=== PATIENT | female | born 1930 | race Caucasian/White ===

== ENCOUNTER 2017-01-26 15:40 | Emergency (ER) | payer MEDICARE, OTHER ==
[~2017-01-26] VITALS: Ht 162.6 cm; Wt 65.8 kg
[2017-01-26] MEDS ORDERED: MELO15TA39 PO (15:57)
[2017-01-26] MEDS ORDERED: METF500T4 PO (15:57)
[2017-01-26] MEDS ORDERED: MONT10TA21 PO (15:57)
[2017-01-26] MEDS ORDERED: SIMV20TA PO (15:57)
[2017-01-26] MEDS ORDERED: FEXO1TAB40 PO (15:57)
--- NOTE | 2017-01-26 16:00 | ED Head Injury ---
General Chief Complaint: Laceration Stated Complaint: HEAD LACERATION Nursing Triage Note: TRIPPED AND FELL IN PARKING LOT HITTING TOP OF FOREHEAD ON GRAVEL. Source: patient, spouse Exam Limitations: no limitations History of Present Illness Time seen by provider: 16:00 Initial Comments 86-year-old female patient presents to the emergency Department with reports of tripping in the parking lot at [facility] and falling on her face/forehead. Denies LOC, SARGENT, or confusion. Does c/o laceration of the forehead and skin tear on the left hand. Occurred: just prior to arrival Location: frontal Method of Injury: fell Loss of Consciousness: no loss of consciousness Allergies and Home Medications Allergies Coded Allergies: Penicillins (Verified Allergy, Unknown, 01/26/17) codeine (Verified Allergy, Unknown, 01/26/17) Home Medications Fexofenadine/Pseudoephedrine 1 Each Tab.er.12h, 1 EACH PO, (Reported) Meloxicam 15 Mg Tablet, 15 MG PO DAILY, (Reported) Metformin HCl 500 Mg Tablet, 500 MG PO, (Reported) Montelukast Sodium 10 Mg Tablet, 10 MG PO DAILY, (Reported) Simvastatin 20 Mg Tablet, 20 MG PO DAILY, (Reported) Constitutional: no symptoms reported Eyes: Denies Blurred Vision, Denies Drainage, Denies Decreased Acuity, Denies Pain, Denies Photophobia, Denies Vision Changes Ears, Nose, Mouth, Throat: denies ear pain, denies ear discharge, denies nose pain, denies nose discharge, denies epistaxis, denies mouth pain, denies throat pain Respiratory: no symptoms reported Cardiovascular: no symptoms reported Gastrointestinal: no symptoms reported Musculoskeletal: No back pain, No joint pain, No neck pain Skin: see HPI Psychiatric/Neurological: Denies Cognitive Dysfunction, Denies Headache, Denies Numbness, Denies Petit Mal Seizures, Denies Tingling, Denies Tonic Clonic Seizures, Denies Unable to Move Lower Ext, Denies Unable to Move Upper Ext, Denies Weakness All Other Systems Reviewed Negative Unless Noted: Yes (Negative excepted noted.) Past Umtbyxy-Pcuwad-Czjrzz Hx Patient Social History Alcohol Use: Denies Use Recreational Drug Use: No Smoking Status: Never a Smoker Recent Foreign Travel: No Contact w/Someone Who Travel: No Recent Infectious Disease Expo: No Recent Hopitalizations: No Immunizations Up To Date Tetanus Booster (TDap): More than 5yrs Surgeries HX Surgeries: Yes Surgeries: Appendectomy, Gallbladder, Hysterectomy, Orthopedic, Tonsillectomy Respiratory Hx Respiratory Disorders: Yes (BRONCHIECTOSIS) Cardiovascular Hx Cardiac Disorders: No Neurological Hx Neurological Disorders: No Genitourinary Hx Genitourinary Disorders: No Gastrointestinal Hx Gastrointestinal Disorders: No Musculoskeletal Hx Musculoskeletal Disorders: Yes Musculoskeletal Disorders: Chronic Back Pain Endocrine Hx Endocrine Disorders: No Cancer Hx Cancer: No Reviewed Nursing Assessment Reviewed/Agree w Nursing PMH: Yes Family Medical History Significant Family History: No Pertinent Family Hx Physical Exam Vital Signs Vital Sign - Last 12Hours 01/26/17 01/26/17 15:47 16:55 Temp 96.2 Pulse 100 Resp 19 B/P (MAP) 166/90 Pulse Ox 96 Capillary Refill : Less Than 3 Seconds General Appearance: WD/WN, no apparent distress HEENT: PERRL/EOMI, normal ENT inspection, TMs normal, pharynx normal, other (4 cm L-shaped superficial laceration with surrounding abrasions. ) Neck: non-tender, full range of motion, supple, normal inspection Cardiovascular: normal peripheral pulses, regular rate, rhythm, no edema, no murmur Respiratory: lungs clear, normal breath sounds, no respiratory distress Gastrointestinal: non tender, soft, No distended Back: normal inspection, no vertebral tenderness Extremities: normal range of motion, non-tender, no pedal edema, normal capillary refill, pelvis stable Psychiatric: alert, oriented x 3 Crainal Nerves: normal hearing, normal speech, PERRL Coordination/Gait: normal finger to nose, normal gait, negative Romberg's sign Motor/Sensory: no motor deficit, no sensory deficit, no pronator drift Skin: normal color, warm/dry, other (4 cm L-shaped superficial laceration with surrounding abrasions. 2 cm skin tear left posterior hand. ) Alvin Coma Score Best Eye Response: (4) Open Spontaneously Best Verbal Response: (5) Oriented Best Motor Response: (6) Obeys Commands Leota Total: 15 Laceration Repair : Wound Location: Scalp (and forehead) Wound Length (cm): 4 Wound Explored: contaminated Betadine Prep?: No (scrubbed with chorhexadine and sterile saline.) Other Closure Supply: Wound Adhesive Sterile Dressing Applied?: No Progress/Results/Core Measures Results/Orders My Orders Orders - SAEID BILLINGS Ct Head Wo (01/26/17 16:06) Dipht,Pertuss(Acell),Tet Adult (Boostrix (01/26/17 16:06) Lidocaine/Epi 1% 1:100,000 (Xylocaine /E (01/26/17 16:06) Vital Signs/I&O Vital Sign - Last 12Hours 01/26/17 01/26/17 15:47 16:55 Temp 96.2 96.2 Pulse 100 100 Resp B/P (MAP) 166/90 Pulse Ox 96 Blood Pressure Mean: 115 Diagnostic Imaging Diagonstic Imaging: CT Plain Films/CT/US/NM/MRI: head Comments FINDINGS: There are mild diffuse atrophic changes. There are no extra-axial fluid collections. No intracranial hemorrhage. There are mild low-density changes in the deep white matter, compatible with chronic ischemic change. There is no acute appearing intracranial abnormality. The calvarial windows show no fracture. IMPRESSION: Mild atrophic changes and chronic changes in the deep white matter. No acute hemorrhage, mass effect, or acute appearing intracranial finding. Dictated on workstation # [id number] Reviewed: Reviewed by Me (radiology report reviewed by me) Departure Communication Progress Notes diagnostic findings discussed with the patient. plan for dsch to home. Impression Impression: Primary Impression: Minor head injury Qualified Codes: S00.90XA - Unspecified superficial injury of unspecified part of head, initial encounter Additional Impressions: Laceration of scalp without complication Qualified Codes: S01.01XA - Laceration without foreign body of scalp, initial encounter Skin tear of left hand without complication Qualified Codes: S61.412A - Laceration without foreign body of left hand, initial encounter Disposition: 01 HOME, SELF-CARE Condition: Improved Departure-Patient Inst. Decision time for Depature: 16:29 Referrals: NO,LOCAL PHYSICIAN (PCP) Primary Care Physician Patient Instructions: Laceration Repair With Glue (DC), Minor Head Injury (DC) Add. Discharge Instructions: All discharge instructions reviewed with patient and/or family. Voiced understanding. Medications as directed. Continue usual medications. Ice pack for 20 minute intervals as needed for pain. Shower with antibacterial soap. Follow-up with your family practitioner for recheck. Call for appointment time. Return to the emergency department for worsened pain, dizziness, changes in vision, changes in behavior, shortness of air, seizure, chest pain, vomiting , numbness, weakness, redness, drainage, fever, or any other concerns. Work/School Note: Local Medical Staff Listing SAEID BILLINGS Jan 26, 2017 16:00
[2017-01-26] MEDS ORDERED: LIDOCAINE/EPI 1%-1:100,000 (XYLOCAINE) 20ML INJ STA (16:06)
[2017-01-26] MEDS ORDERED: TETANUS,DIPTH,PERTUSS P/F (BOOSTRIX) 0.5 ML VIAL IM STA (16:06)
--- NOTE | 2017-01-26 16:25 | Diagnostic Imaging Report ---
INDICATION: Status post fall with injury to head. TECHNIQUE: A noncontrast brain CT was performed. FINDINGS: There are mild diffuse atrophic changes. There are no extra-axial fluid collections. No intracranial hemorrhage. There are mild low-density changes in the deep white matter, compatible with chronic ischemic change. There is no acute appearing intracranial abnormality. The calvarial windows show no fracture. IMPRESSION: Mild atrophic changes and chronic changes in the deep white matter. No acute hemorrhage, mass effect, or acute appearing intracranial finding. Dictated by: Dictated on workstation # [id number]
[2017-01-26 16:55] VITALS: BP 166/90
== END 2017-01-26 16:55 | disposition home or self-care (01) ==
LOC: ER 15:45
DX: S01.01XA Laceration without foreign body of scalp, initial encounter (principal); S61.412A Laceration without foreign body of left hand, initial encounter; Z23 Encounter for immunization; E11.9 Type 2 diabetes mellitus without complications; Z79.84 Long term (current) use of oral hypoglycemic drugs; W01.0XXA Fall on same level from slipping, tripping and stumbling without subsequent striking against object, initial encounter; Y92.481 Parking lot as the place of occurrence of the external cause; Y99.8 Other external cause status
CPT/HCPCS: 12011; 70450; 90471; 90715